=== PATIENT | female | born 1945 | race Caucasian/White ===

== ENCOUNTER 2018-02-10 06:40 | Day surgery (SDC) ==
[2018-02-10] MEDS ORDERED: LIDOCAINE 1% 20 ML MDV ID STA (07:26)
[2018-02-10] MEDS ORDERED: DIPRIVAN 20 ML VIAL IVP ONE (08:45)
[2018-02-10 15:16] VITALS: BP 128/67; TEMP 98.4
--- NOTE | 2018-02-11 10:54 | OP ---
PROCEDURE: COLONOSCOPY TO THE CECUM WITH SNARE POLYPECTOMY. ENDOSCOPIST: Yola ARTHUR M.D. INDICATION: HISTORY OF POLYPS INSTRUMENT: [id number]. MEDICATION: PER ANESTHESIA. DATE OF LAST COLONOSCOPY: 2008 PROCEDURE: The patient was positioned for colonoscopy. The digital rectal exam was negative. The colonoscope was inserted through the anus and advanced to the cecum. The cecum was identified using the ileocecal valve and the appendiceal orifice as landmarks. The scope was slowly withdrawn through an suboptimally prepped colon. [place] Bowel Prep Score 2+2+2=6. In the cecal pit we found a 1cm sessile polyp removed using snare cautery. A 5mm poly in the ascending colon using snare cautery. Diverticulosis is seen in the left colon. Retroflex exam was otherwise normal. Withdraw time 7 minutes and 58 seconds. PLAN: 1. Repeat exam again in 3 years. CC: Dr. Ravi JOHNSTON
== END 2018-02-10 09:55 | disposition home or self-care (01) ==
LOC: SURG 06:40
PROVIDERS: ATTEND Internal Medicine Gastroenterology
DX: K63.5 Polyp of colon (principal); K57.90 Diverticulosis of intestine, part unspecified, without perforation or abscess without bleeding; Z86.010 Personal history of colon polyps

== ENCOUNTER 2023-02-17 20:39 | Observation (INO) ==
--- NOTE | 2023-02-17 21:31 | ED.PDOC ---
General ED Provider: Dr. ROMIE QUINTANILLA DO Chief Complaint: Altered Mental Status Stated Complaint: 77 year old female with PMHx of HTN and HLD who presents to the emergency department by POV with chief complaint of an episode of altered awareness/amnesia that occurred today while attending her jehovah's witness service. Patient states she had a brief episode of confusion and was unaware of how long she had been standing talking to a member of her jehovah's witness and states when she sat down she could not remember a single persons name in her religion which she states is unusual for her since she has been going there for so long. Patients symptoms spontaneously abated and she reports she is back to her baseline. Denies recent fever, chills, syncope, headache, chest pain, SOB, new cough, N/V/D, dysuria, flank pain, or new focal weakness/numbness. No other associated symptoms or modifying factors at this time. Time Seen by Provider: 02/17/23 21:31 Mode of Arrival: Walk-In Information Source: Patient Primary Care Provider: RAAD HERNANDEZ Nursing and Triage Documentation Reviewed and Agree: Yes Review of Systems Review Of Systems Constitutional: Reports No symptoms All Other Systems: Reviewed and Negative [facility] Medical History FH: cholecystectomy Z83.79 - Family history of other diseases of the digestive system (ICD-10) Hypertension I10 - Essential (primary) hypertension (ICD-10) Hypothyroidism E03.9 - Hypothyroidism, unspecified (ICD-10) Serum lipids high E78.5 - Hyperlipidemia, unspecified (ICD-10) Family History Other No known health problems Social History Smoking and tobacco status: Never smoker Surgical History H/O heart artery stent Z95.5 - Presence of coronary angioplasty implant and graft (ICD-10) H/O: hysterectomy Z90.710 - Acquired absence of both cervix and uterus (ICD-10) Physical Exam Physical Exam Appearance: Reports Well-appearing, No pain distress and Well-nourished Ill-appearing: None Pain Distress: None Eyes: Reports POP, EOMI and Conjunctiva clear ENT: Reports Ears normal, Nose normal and Oropharynx normal Neck: Supple Respiratory: Reports Airway patent, Breath sounds clear, Breath sounds equal and Respirations nonlabored Cardiovascular: Reports RRR, Pulses normal, No rub and No murmur GI/: Reports Soft, Nontender, No masses, Bowel sounds normal and No Organomegaly Musculoskeletal: Reports Normal strength, ROM intact, No edema and No calf tenderness Skin: Reports Warm, Dry and Normal color Neurological: Reports Sensation intact, Motor intact, Reflexes intact, Cranial nerves intact, Alert and Oriented Psychiatric: Reports Affect appropriate and Mood appropriate NIH Stroke Scale 1a. Level of Consciousness: 0=Alert and keenly responsive 1b. Level of Consciousness Questions: 0=Answers correctly to two questions 1c. Level of Consciousness Commands: 0=Performs two tasks correctly 2. Best Gaze: 0=Normal 3. Visual: 0=No visual loss 4. Facial Palsy: 0=Normal 5a. Motor Left Arm: 0=No drift,arm holds 90 degrees for 10 sec., leg 30 degrees for 5 sec. 5b. Motor Right Arm: 0=No drift,arm holds 90 degrees for 10 sec., leg 30 degrees for 5 sec. 6a. Motor Left Le=No drift,arm holds 90 degrees for 10 sec., leg 30 degrees for 5 sec. 6b. Motor Right Le=No drift,arm holds 90 degrees for 10 sec., leg 30 degrees for 5 sec. 7. Limb Ataxia: 0=Absent 8. Sensory: 0=Normal 9. Best Language: 0=No aphasia 10. Dysarthria: 0=Normal 11. Extincion and Inattention: 0=Normal Stroke Scale Total: 0 Critical Care Note Critical Care Note Total Critical Care Time (mins): 0 Course Course 02/18/23 04:47 02/18/23 04:47 Orders, Labs, Meds: Lab Review 02/17/23 02/17/23 20:50 21:32 WBC 5.63 RBC 4.47 Hgb 13.0 Hct 39.3 MCV 87.9 MCH 29.1 MCHC 33.1 RDW Coeff of Jeremy 13.2 Plt Count 249 Immature Gran % (Auto) 0.4 Neut % (Auto) 55.8 Lymph % (Auto) 27.5 [place] % (Auto) 11.4 H Eos % (Auto) 3.7 Baso % (Auto) 1.2 Neut # (Auto) 3.1 Lymph # (Auto) 1.6 [place] # (Auto) 0.6 Eos # (Auto) 0.2 Baso # (Auto) 0.1 Immature Gran # (Auto) 0.0 PT 10.4 INR 1.00 APTT 26.0 Sodium 131.0 L Potassium 3.23 L Chloride 94.7 L Carbon Dioxide 28.1 Anion Gap 11.43 BUN 9.0 Creatinine 0.59 L Estimated GFR (MDRD) 99.00 BUN/Creatinine Ratio 15.25 Glucose 90.9 Calcium 9.26 Total Bilirubin 1.33 H AST 34.8 ALT 19.3 Alkaline Phosphatase 126.6 Troponin I < 0.012 NT-Pro-B Natriuret Pep 222 Total Protein 8.55 H Albumin 4.69 Globulin 3.86 Albumin/Globulin Ratio 1.21 TSH 3.540 Urine Color Yellow Urine Clarity Clear Urine pH 7.0 Ur Specific [place] 1.015 Urine Protein Negative Urine Glucose (UA) Negative Urine Ketones Negative Urine Blood Negative Urine Nitrite Negative Urine Bilirubin Negative Urine Urobilinogen 0.2 Ur Leukocyte Esterase Negative Orders Category Date Time Status ADMIT OBSERVATION [PLACE PATIENT OBSERVATION] .TO ADMISSION 02/17/23 22:07 Active MEDSURG (MONITORED BED) EKG-(ED ONLY) Stat CARDIO 02/17/23 21:30 Completed TELEMETRY MONITORING TELE CARE 02/17/23 22:07 Active CBC W/ AUTO DIFF Stat LAB 02/17/23 20:50 Completed COMPREHENSIVE METABOLIC PANEL Stat LAB 02/17/23 20:50 Completed NT-PROBNP(ED) Stat LAB 02/17/23 20:50 Completed PARTIAL THROMBOPLASTIN TIME Stat LAB 02/17/23 20:50 Completed PT WITH INR Stat LAB 02/17/23 20:50 Completed THYROID STIMULATING HORMONE Stat LAB 02/17/23 20:50 Completed TROPONIN I Stat LAB 02/17/23 20:50 Completed URINALYSIS C & S IF INDICATED Stat LAB 02/17/23 21:32 Completed CHEST, 1V AP ONLY Stat RADS 02/17/23 21:[address] HEAD W/O CONTRAST Stat RADS 02/17/23 21:27 Completed Medications Generic Name Dose Route Start Last Admin Trade Name Freq PRN Reason Stop Dose Admin Acetaminophen 650 mg 02/17/23 22:46 Acetaminophen 325 Mg Tablet PO Q4H PRN Mild Pain Hydralazine HCl 10 mg 02/17/23 22:46 Hydralazine Hcl 20 Mg/Ml Sdv IVP Q6H PRN Hypertension Discontinued Medications Generic Name Dose Route Start Last Admin Trade Name Freq PRN Reason Stop Dose Admin Potassium Chloride 40 meq 02/17/23 22:51 02/17/23 23:25 Potassium Chloride 20 Meq Tab PO 02/17/23 22:52 40 meq ONCE ONE Administration Vital Signs: Temp Pulse Resp BP Pulse Ox 02/17/23 20:42 98.3 F 76 16 198/77 H 97 Discharge Plan Discharge Patient Disposition: ADMITTED INPATIENT Discharge Problem: Altered awareness, transient, Brain TIA Did you review [place] FILM ARCHIVIST for ALL controlled substances?: Not Applicable ED Provider: ROMIE QUINTANILLA Physician Progress Note: []
[2023-02-17 21:36] LABS: BASOPHILS # (AUTO) 0.1 K/uL (0-0.2); BASOPHILS % (AUTO) 1.2 % (0.0-3.0); EOSINOPHILS # (AUTO) 0.2 K/ul (0.0-0.7); EOSINOPHILS % (AUTO) 3.7 % (0.0-7.0); HEMATOCRIT 39.3 % (37.0-47.0); IMMATURE GRANULOCYTE % (AUTO) 0.4 % (0.0-5.0); LYMPHOCYTES # (AUTO) 1.6 K/uL (0.60-3.4); LYMPHOCYTES % (AUTO) 27.5 (10.0-50.0); MEAN CORPUSCULAR HEMOGLOBIN 29.1 pg (27.0-31.0); MEAN CORPUSCULAR HGB CONC 33.1 (31.8-35.4); MEAN CORPUSCULAR VOLUME 87.9 fl (81.0-99.0); MONOCYTES # (AUTO) 0.6 K/uL (0.4-2.0); MONOCYTES % (AUTO) 11.4 (0-10); NEUTROPHILS # (AUTO) 3.1 K/ul (2.0-6.9); NEUTROPHILS % (AUTO) 55.8 % (42.2-75.2); PLATELET COUNT 249 10^3/uL (140-440); RDW COEFFICIENT OF VARIATION 13.2 % (11.6-14.8); RED BLOOD COUNT 4.47 10^6/ul (4.20-5.40); WHITE BLOOD COUNT 5.63 K/ul (4.6-10.2)
[2023-02-17 21:42] LABS: BILIRUBIN,URINE Negative (NEGATIVE); CLARITY,URINE Clear (CLEAR); COLOR,URINE Yellow (YELLOW); GLUCOSE, URINE (UA) Negative (NEGATIVE); KETONES,URINE Negative (NEGATIVE); LEUKOCYTE ESTERASE ,URINE Negative (NEGATIVE); NITRITE,URINE Negative (NEGATIVE); PROTEIN,URINE Negative (NEGATIVE); URINE, BLOOD Negative (NEGATIVE); UROBILINOGEN,URINE 0.2 (0.2)
[2023-02-17 21:47] LABS: ALANINE AMINOTRANSFERASE 19.3 U/L (0-35); ALBUMIN 4.69 g/dL (3.5-5.0); ALKALINE PHOSPHATASE 126.6 U/L (53-141); ASPARTATE AMINO TRANSFERASE 34.8 U/L (14-36); BILIRUBIN,TOTAL 1.33 mg/dL (0.2-1.3); CALCIUM 9.26 mg/dL (8.4-10.2); CARBON DIOXIDE 28.1 mmol/L (22-30.0); CHLORIDE 94.7 mmol/L (98-107); CREATININE 0.59 mg/dL (0.60-1.30); GLUCOSE 90.9 mg/dL (74-106); POTASSIUM 3.23 mmol/L (3.5-5.1); TOTAL PROTEIN 8.55 g/dL (6.3-8.2)
[2023-02-17 21:48] LABS: PROTHROMBIN TIME 10.4 SEC (9.3-11.0)
--- NOTE | 2023-02-17 21:48 | CT ---
EXAM: CT BRAIN WITHOUT CONTRAST HISTORY: Transit ischemic attack TECHNIQUE: CT of the brain without intravenous contrast. FINDINGS: There is no acute hemorrhage midline shift or mass effect. No hydrocephalus or abnormal e xtra-axial fluid collection. Generalized involutional atrophy, mild. Chronic microvascular change o f the periventricular white matter, minimal. No acute large vessel territorial infarct is seen. The bony cranium appears normal. The visualized paranasal sinuses are clear. Soft tissues without signi ficant abnormality. IMPRESSION: 1. No acute intracranial abnormality. Chronic changes as described. All CT scans are performed using dose optimization techniques as appropriate to the performed exam an d include at least one of the following: Automated exposure control, adjustment of the mA and/or kV according t o size, and the use of iterative reconstruction technique.
--- NOTE | 2023-02-17 21:55 | DI ---
EXAM: CHEST ONE-VIEW History: Transient ischemic attack FINDINGS: Normal cardiomediastinal contours. Normal pulmonary vasculature. No infiltrative opaciti es. Granulomatous calcifications bilaterally. The lungs are hyperexpanded. No acute chest wall abn ormality. Impression: No acute cardiopulmonary disease Probable component of chronic obstructive pulmonary disease
[2023-02-17 21:59] LABS: TROPONIN I < 0.012 ng/ml (0.0000-0.120)
[2023-02-17] MEDS ORDERED: HYDRALAZINE HCL IVP PRN (22:46)
[2023-02-17] MEDS ORDERED: TYLENOL PO PRN (22:46)
[2023-02-17] MEDS ORDERED: K-DUR PO ONE (22:51)
[2023-02-17 23:19] VITALS: BMI 24.9
[2023-02-18 05:30] LABS: BASOPHILS # (AUTO) 0.1 K/uL (0-0.2); BASOPHILS % (AUTO) 1.1 % (0.0-3.0); EOSINOPHILS # (AUTO) 0.2 K/ul (0.0-0.7); EOSINOPHILS % (AUTO) 3.6 % (0.0-7.0); HEMOGLOBIN 11.7 g/dl (12.0-16.0); IMMATURE GRANULOCYTE % (AUTO) 0.4 % (0.0-5.0); LYMPHOCYTES # (AUTO) 1.2 K/uL (0.60-3.4); LYMPHOCYTES % (AUTO) 27.9 (10.0-50.0); MEAN CORPUSCULAR HGB CONC 32.5 (31.8-35.4); MEAN CORPUSCULAR VOLUME 89.1 fl (81.0-99.0); MONOCYTES # (AUTO) 0.5 K/uL (0.4-2.0); MONOCYTES % (AUTO) 12.1 (0-10); NEUTROPHILS # (AUTO) 2.4 K/ul (2.0-6.9); NEUTROPHILS % (AUTO) 54.9 % (42.2-75.2); PLATELET COUNT 220 10^3/uL (140-440); RDW COEFFICIENT OF VARIATION 13.2 % (11.6-14.8); RED BLOOD COUNT 4.04 10^6/ul (4.20-5.40); WHITE BLOOD COUNT 4.45 K/ul (4.6-10.2)
[2023-02-18 06:01] LABS: ALANINE AMINOTRANSFERASE 16.9 U/L (0-35); ALBUMIN 3.79 g/dL (3.5-5.0); ALKALINE PHOSPHATASE 84.4 U/L (53-141); ASPARTATE AMINO TRANSFERASE 30.2 U/L (14-36); BILIRUBIN,TOTAL 1.04 mg/dL (0.2-1.3); BLOOD UREA NITROGEN 7.6 mg/dL (7-17); CALCIUM 8.77 mg/dL (8.4-10.2); CARBON DIOXIDE 25.4 mmol/L (22-30.0); CHLORIDE 103.5 mmol/L (98-107); CREATININE 0.48 mg/dL (0.60-1.30); GLUCOSE 80.3 mg/dL (74-106); POTASSIUM 3.72 mmol/L (3.5-5.1); SODIUM 134.2 mmol/L (134.5-145); TOTAL PROTEIN 7.01 g/dL (6.3-8.2)
[2023-02-18] MEDS ORDERED: ASPIRIN EC PO ONE (08:07)
[2023-02-18] MEDS ORDERED: SYNTHROID PO SCH (08:30)
[2023-02-18 08:36] LABS: CHOLESTEROL 260.3 mg/dL (0-200); HDL CHOLESTEROL 53.2 mg/dL (35-80); TRIGLYCERIDES 58.2 mg/dL (0-150)
[2023-02-18] MEDS ORDERED: PLAVIX PO SCH (09:00)
[2023-02-18 10:08] VITALS: RESP 15
--- NOTE | 2023-02-18 10:16 | MRI ---
EXAM: BRAIN MRI WITHOUT CONTRAST HISTORY: Stroke/TIA. TECHNIQUE: Multiplanar and multisequence MRI of the brain without the administration of intravenous contrast. COMPARISON: Brain CT dated 02/17/2023. FINDINGS: There is no intracranial mass. There is no acute ischemic infarct or acute intracranial hemorrhage. There is mild to moderate cerebral parenchymal volume loss. There is no hydrocephalus. Multiple foci of T2/FLAIR hyperintense signal are present in the subcortical and periventricular whit e matter, most commonly seen in chronic white matter microvascular ischemic changes. The basilar cisterns are patent. The posterior fossa structures are within normal limits. The paranasal sinuses and mastoid air cells are well aerated. There has been prior bilateral cataract surgery. No calvarial abnormality is identified. IMPRESSION: 1. No acute intracranial findings. 2. Mild to moderate cerebral atrophy. 3. Mild chronic white matter microvascular ischemic changes.
--- NOTE | 2023-02-18 10:19 | CT ---
EXAMINATION: COMPUTED TOMOGRAPHY ANGIOGRAPHY (CTA) OF THE HEAD WITHOUT AND WITH CONTRAST HISTORY: Stroke symptoms.. TECHNIQUE: Computed tomography of the head was performed without contrast according to standard tonny col. Computed tomography angiography was obtained from the skull base to the vertex following admini stration of intravenous contrast. IV Contrast: Omnipaque 350.. 3D/MIP/VR images utilized. CT Dose Reduction Techniques Employed: Yes COMPARISON: None FINDINGS: PARENCHYMAL FINDINGS: Hemorrhage: None. Parenchyma: Normal ovalle-white differentiation. No chronic infarct. No parenchymal atrophy. Mass effect: No midline shift. Ventricles: Normal size and configuration for age. Other: Orbits are normal. Paranasal sinuses are normal. Mastoid air cells are normal. Soft tissues are normal. Calvarium is normal. ANGIOGRAPHIC FINDINGS: Limited Neck: Patent extracranial vasculature. There is apparent narrowing of the proximal petrous p ortions of both internal carotid arteries on the 3-D reconstructions. This finding is not present on the axial source images and is believed to represent artifact. Habematolel of [place]: Complete. Anterior Circulation: - Internal Carotid Arteries: No significant stenosis. - Middle Cerebral Arteries: No significant stenosis. - Anterior Cerebral Arteries: No significant stenosis. Posterior (Vertebrobasilar) Circulation: - Vertebral Arteries: Co-dominant. No significant stenosis. - Basilar Artery: No significant stenosis. - Posterior Cerebral Arteries: No significant stenosis. Other: No aneurysm. No vascular malformation. IMPRESSION: No large vessel occlusion. No acute intracranial abnormality. All CT scans are performed using dose optimization techniques as appropriate to the performed exam an d include at least one of the following: Automated exposure control, adjustment of the mA and/or kV according t o size, and the use of iterative reconstruction technique.
--- NOTE | 2023-02-18 10:31 | CT ---
EXAMINATION: COMPUTED TOMOGRAPHY ANGIOGRAPHY (CTA) OF THE NECK WITHOUT AND WITH CONTRAST HISTORY: Stroke TECHNIQUE: Computed tomographic angiography was obtained from aortic arch to the pamunkey [place] follow ing administration of intravenous contrast. IV Contrast: Omnipaque 350. 3D/MIP/VR images utilized. CT Dose Reduction Techniques Employed: Yes COMPARISON: CTA brain 02/18/2023. FINDINGS: NECK ANGIOGRAPHIC FINDINGS: Great Vessels: Normal configuration of the great vessels. Normal branching of aortic arch vessels. Calcified atherosclerotic plaque of the aorta. Common Carotid Arteries: - Right: Normal course and caliber. Moderate atherosclerotic plaque. - Left: Normal course and caliber. Mild atherosclerotic plaque. Internal Carotid Arteries: - Right: Normal course and caliber. Calcified atherosclerotic plaque. Focal plaque is present in th e proximal right internal carotid artery 2 cm from its origin which narrows the diameter by about 50% . Calcified plaque is present at the carotid bifurcation without hemodynamically significant stenosi s. - Left: Normal course and caliber. Mild atherosclerotic plaque. No hemodynamically significant narr owing at the carotid bifurcation by NASCET criteria. Vertebral Arteries: Co-dominant. - Right: Normal course and caliber. - Left: Normal course and caliber. IMPRESSION: There is focal plaque near the origin of the right internal carotid artery resulting in narrowing of about 50%. All CT scans are performed using dose optimization techniques as appropriate to the performed exam an d include at least one of the following: Automated exposure control, adjustment of the mA and/or kV according t o size, and the use of iterative reconstruction technique.
[2023-02-18] MEDS ORDERED: ASPIRIN EC ONE (10:32)
--- NOTE | 2023-02-18 11:59 | PCM.SS ---
Provider Provider: TRISH JULES PA-C, [facility] Admission Date Admission Date: 02/17/23 Discharge Date Discharge Date: 02/18/23 Primary Care Physician Primary Care Physician: RAAD HERNANDEZ Chief Complaint Reason For Visit: TIA History of Present Illness History of Present Illness: Admitted 02/17/23 22:26, this 77 year old /WHITE/F with past medical history of CAD status post stent, hypertension, hyperlipidemia, hypothyroidism who presented to the ER with complaints of memory loss. Patient states that while she was in [employer] she lost time. She looked around and did not know anyone's name which she normally knows everybody at [employer]. She just states that she felt unusual. She knew her 's name but no one else. She denies any focal weakness, headache, change in vision. No history of TIA or stroke. States that she takes Plavix daily and used to be on aspirin and Plavix but they stopped the aspirin. She is unsure why, thinks that maybe it just was not needed anymore. She has hyperlipidemia which she does not take a statin for anymore as it caused elevated liver enzymes. She follows with Dr. Pino cardiology in [place]. In the ER she had a negative CT head. NIH was 0. On my evaluation this morning patient denies any focal deficits. She feels that her mentation is normal and at her baseline. [facility] Medical History FH: cholecystectomy Z83.79 - Family history of other diseases of the digestive system (ICD-10) Hypertension I10 - Essential (primary) hypertension (ICD-10) Hypothyroidism E03.9 - Hypothyroidism, unspecified (ICD-10) Serum lipids high E78.5 - Hyperlipidemia, unspecified (ICD-10) Surgical History H/O heart artery stent Z95.5 - Presence of coronary angioplasty implant and graft (ICD-10) H/O: hysterectomy Z90.710 - Acquired absence of both cervix and uterus (ICD-10) Family History Other No known health problems Social History Smoking and tobacco status: Never smoker Medications Mecications: Medications at Discharge (Home Meds & RX) amlodipine 2.5 mg tablet (Norvasc) 2.5 mg PO DAILY 02/06/18 hydrochlorothiazide 12.5 mg tablet 12.5 mg PO DAILY 02/06/18 levothyroxine 50 mcg tablet (Synthroid) 50 mcg PO QDAC 02/06/18 carvedilol 3.125 mg tablet (Coreg) 3.125 mg PO Q12H 02/17/23 cholecalciferol (vitamin D3) 25 mcg (1,000 unit) capsule (Vitamin D3) 1,000 unit PO DAILY 02/17/23 clopidogrel 75 mg tablet (Plavix) 75 mg PO DAILY 02/17/23 potassium 10 mg PO DAILY 02/17/23 Allergies Allergies Allergy/AdvReac Type Severity Reaction Status Date / Time No Known Allergies Allergy Verified 02/17/23 20:57 Review of Systems Constitutional: Denies Fever, Fatigue, Chills or Weakness Head: Reports Normocephalic and Atraumatic Eyes: Denies Vision Changes Throat: Denies Sore Throat or Difficulty Swallowing Cardiovascular: Denies Chest pain, Chest Pressure or Edema Respiratory: Denies Cough or Shortness of air Gastrointestinal: Denies Nausea, Vomiting, Diarrhea or Abdominal pain Genitourinary: Denies Dysuria or Frequency Dermatologic: Denies Rashes Neurological: Reports Other (+amnesia, transient, resolved ); Denies Headache, Dizziness, Syncope, Seizure, Numbness, Weakness, Speech difficulty or Problems with walking Psychiatric: Denies Depression or Anxiety Physical Examination Appearance: Positive Well-appearing, Well-nourished, No Apparent Distress and Alert and Oriented x3 Head: Positive Normocephalic and Atraumatic Neck: Positive Supple and Trachea Midline Heart: Positive RRR Respiratory: Positive Breath Sounds Clear, Bilaterally GI/: Positive Soft, Nontender, Bowel sounds normal and No Distention Extremities: Negative Edema Neurological: Positive Cranial nerves intact, Normal Gait and Oriented Psychiatric: Positive Normal Judgement, Normal Insight, Affect Appropriate and Mood Appropriate Vital Signs (Last 4 Hours) Vital Signs Last 4 Hours: Vital Signs: Last 4 Hours 02/18/23 10:00 Temperature 97.6 F Temperature Source Oral Pulse Rate 69 Respiratory Rate 15 Blood Pressure 152/65 H Blood Pressure Mean 94 Blood Pressure Location Right Arm Blood Pressure Position Supine O2 Sat by Pulse Oximetry 97 Oxygen Delivery Method Room Air Labs This Visit Labs This Visit: Labs This Visit 02/17/23 02/17/23 02/18/23 20:50 21:32 04:47 WBC 5.63 4.45 L RBC 4.47 4.04 L Hgb 13.0 11.7 L Hct 39.3 36.0 L MCV 87.9 89.1 MCH 29.1 29.0 MCHC 33.1 32.5 RDW Coeff of Jreemy 13.2 13.2 Plt Count 249 220 Immature Gran % (Auto) 0.4 0.4 Neut % (Auto) 55.8 54.9 Lymph % (Auto) 27.5 27.9 [place] % (Auto) 11.4 H 12.1 H Eos % (Auto) 3.7 3.6 Baso % (Auto) 1.2 1.1 Neut # (Auto) 3.1 2.4 Lymph # (Auto) 1.6 1.2 [place] # (Auto) 0.6 0.5 Eos # (Auto) 0.2 0.2 Baso # (Auto) 0.1 0.1 Immature Gran # (Auto) 0.0 0.0 PT 10.4 INR 1.00 APTT 26.0 Sodium 131.0 L 134.2 L Potassium 3.23 L 3.72 Chloride 94.7 L 103.5 Carbon Dioxide 28.1 25.4 Anion Gap 11.43 9.02 BUN 9.0 7.6 Creatinine 0.59 L 0.48 L Estimated GFR (MDRD) 99.00 125.00 BUN/Creatinine Ratio 15.25 15.83 Glucose 90.9 80.3 Hemoglobin A1c 5.37 Calcium 9.26 8.77 Total Bilirubin 1.33 H 1.04 AST 34.8 30.2 ALT 19.3 16.9 Alkaline Phosphatase 126.6 84.4 D Troponin I < 0.012 NT-Pro-B Natriuret Pep 222 Total Protein 8.55 H 7.01 Albumin 4.69 3.79 Globulin 3.86 3.22 Albumin/Globulin Ratio 1.21 1.17 Triglycerides 58.2 Cholesterol 260.3 H LDL Cholesterol, Calc 195 VLDL Cholesterol 12 HDL Cholesterol 53.2 Cholesterol/HDL Ratio 4.9 TSH 3.540 Urine Color Yellow Urine Clarity Clear Urine pH 7.0 Ur Specific [place] 1.015 Urine Protein Negative Urine Glucose (UA) Negative Urine Ketones Negative Urine Blood Negative Urine Nitrite Negative Urine Bilirubin Negative Urine Urobilinogen 0.2 Ur Leukocyte Esterase Negative Imaging Imaging: EXAM: CT BRAIN WITHOUT CONTRAST HISTORY: Transit ischemic attack TECHNIQUE: CT of the brain without intravenous contrast. FINDINGS: There is no acute hemorrhage midline shift or mass effect. No hydrocephalus or abnormal extra-axial fluid collection. Generalized in volutional atrophy, mild. Chronic microvascular change of the periventricular white matter, minimal. No acute large vessel territorial infarct is seen. The bony cranium appears normal. The visualized paranasal sinuses are clear. Soft tissues without significant abnormality. IMPRESSION: 1. No acute intracranial abnormality. Chronic changes as described. EXAMINATION: COMPUTED TOMOGRAPHY ANGIOGRAPHY (CTA) OF THE HEAD WITHOUT AND WITH CONTRAST HISTORY: Stroke symptoms.. TECHNIQUE: Computed tomography of the head was performed without contrast according to standard protocol. Computed tomography angiography was obtained from the skull base to the vertex following administration of intravenous contrast. IV Contrast: Omnipaque 350.. 3D/MIP/VR images utilized. CT Dose Reduction Techniques Employed: Yes COMPARISON: None FINDINGS: PARENCHYMAL FINDINGS: Hemorrhage: None. Parenchyma: Normal ovalle-white differentiation. No chronic infarct. No parenchymal atrophy. Mass effect: No midline shift. Ventricles: Normal size and configuration for age. Other: Orbits are normal. Paranasal sinuses are normal. Mastoid air cells are normal. Soft tissues are normal. Calvarium is normal. ANGIOGRAPHIC FINDINGS: Limited Neck: Patent extracranial vasculature. There is apparent narrowing of the proximal petrous portions of both internal carotid arteries on the 3-D reconstructions. This finding is not present on the axial source images and is believed to represent artifact. [place]: Complete. Anterior Circulation: - Internal Carotid Arteries: No significant stenosis. - Middle Cerebral Arteries: No significant stenosis. - Anterior Cerebral Arteries: No significant stenosis. Posterior (Vertebrobasilar) Circulation: - Vertebral Arteries: Co-dominant. No significant stenosis. - Basilar Artery: No significant stenosis. - Posterior Cerebral Arteries: No significant stenosis. Other: No aneurysm. No vascular malformation. IMPRESSION: No large vessel occlusion. No acute intracranial abnormality. EXAMINATION: COMPUTED TOMOGRAPHY ANGIOGRAPHY (CTA) OF THE NECK WITHOUT AND WITH CONTRAST HISTORY: Stroke TECHNIQUE: Computed tomographic angiography was obtained from aortic arch to the [place] following administration of intravenous contrast. IV Contrast: Omnipaque 350. 3D/MIP/VR images utilized. CT Dose Reduction Techniques Employed: Yes COMPARISON: CTA brain 02/18/2023. FINDINGS: NECK ANGIOGRAPHIC FINDINGS: Great Vessels: Normal configuration of the great vessels. Normal branching of aortic arch vessels. Calcified atherosclerotic plaque of the aorta. Common Carotid Arteries: - Right: Normal course and caliber. Moderate atherosclerotic plaque. - Left: Normal course and caliber. Mild atherosclerotic plaque. Internal Carotid Arteries: - Right: Normal course and caliber. Calcified atherosclerotic plaque. Focal plaque is present in the proximal right internal carotid artery 2 cm from its origin which narrows the diameter by about 50%. Calcified plaque is present at the carotid bifurcation without hemodynamically significant stenosis. - Left: Normal course and caliber. Mild atherosclerotic plaque. No hemodynamically significant narrowing at the carotid bifurcation by NASCET criteria. Vertebral Arteries: Co-dominant. - Right: Normal course and caliber. - Left: Normal course and caliber. IMPRESSION: There is focal plaque near the origin of the right internal carotid artery resulting in narrowing of about 50%. EXAM: BRAIN MRI WITHOUT CONTRAST HISTORY: Stroke/TIA. TECHNIQUE: Multiplanar and multisequence MRI of the brain without the administration of intravenous contrast. COMPARISON: Brain CT dated 02/17/2023. FINDINGS: There is no intracranial mass. There is no acute ischemic infarct or acute intracranial hemorrhage. There is mild to moderate cerebral parenchymal volume loss. There is no hydrocephalus. Multiple foci of T2/FLAIR hyperintense signal are present in the subcortical and periventricular white matter, most commonly seen in chronic white matter microvascular ischemic changes. The basilar cisterns are patent. The posterior fossa structures are within normal limits. The paranasal sinuses and mastoid air cells are well aeratd. There has been prior bilateral cataract surgery. No calvarial abnormality is identified. IMPRESSION: 1. No acute intracranial findings. 2. Mild to moderate cerebral atrophy. 3. Mild chronic white matter microvascular ischemic changes. Review Review Statement: I have independently reviewed and interpreted the labs/EKGs/imaging that were ordered by the ER provider. I have reviewed all outside records that are available currently in our EMR including imaging/notes/labs from previous visits. Plan Reccomendations/Plan: 1. TIA versus CVACTA head neck and brain MRI ordered. Echo ordered. Lipid and A1c ordered. Hold blood pressure medications. TSH normal. NIH 0 this morning. Plan to DC with Holter. 2. CAD status post stent -continue Plavix. Patient no longer takes aspirin. 3. Hyperlipidemia, uncontrolledcheck lipid. Patient no longer takes statin due to elevated liver enzymes. Following outpatient. 4. HypothyroidismTSH normal continue levothyroxine. 5. Hypertensionhold Antihypertensives at this time. Patient's MRI and CTA of head were negative for acute stroke. CTA of neck showed right ICA stenosis of 50%. Patient states this is a new diagnosis for her. Unable to tolerate a statin due to elevated liver enzymes. Recommended outpatient follow-up with PCP and potentially vascular referral for monitoring. Discussed likely TIA. Increased risk for stroke. We will add on baby aspirin daily. We will send patient on event monitor for 30 days to evaluate for underlying A-fib. Echo report still pending but per Dr. Diaz Wilson it looked good. Patient has no deficits and is eager for discharge. Follow-up with PCP in the next week. Patient agrees plan of care. Pending studies: Echo report, event monitor Discharge diagnoses: 1. TIA, resolved 2. ICA, Right, 50% stenosis 3. CAD s/p stent 4. Hyperlipidemia 5. Hypertension 6. Hypothyroidsim Additional Planning: Case discussed with ED Physician, Dr. Singh. Advanced Care Planning: FULL CODE 3 minutes spent discussing advance care planning. Admit to: Obs Discussed Plan of Care with Dr. Agusto Wilson. Review With Patient Reviewed with Patient and Family: Patient and family have been counseled on condition and care plan and have no immediate questions. I have personally discussed and reviewed the patient's visit/current labs/imaging/decision making with Dr. Agusto Wilson, my supervising attending. Total number of minutes spent with patient [85] min. More than 50% of the time spent with this patient was devoted to counseling and coordination of care. Time of Admission:02/17/23 22:26 Time of Discharge: Discharge Plan Discharge Discharge Orders: Discharge Patient (ONCE); Ordered 02/18/23 Ordered By: TRISH JULES Activity Restrictions/Additional Instructions: DISCHARGE TO HOME DX: TIA, CAROTID STENOSIS DIET: HEART HEALTHY ACTIVITY: TOLERATED F/U WITH PCP WITHIN 1 WEEK RECOMMEND OUTPATIENT VASCULAR REFERRAL FOR CAROTID STENOSIS EVENT MONITOR X30 DAYS, SEE PCP FOR RESULTS TAKE BABY ASPIRIN DAILY Instructions: Transient Ischemic Attack (GEN) Patient Disposition: HOME SELF-CARE Prescriptions: New aspirin 81 mg capsule 81 mg PO DAILY Qty: 30 0RF Continued potassium [Potassimin] 10 mg PO DAILY clopidogrel [Plavix] 75 mg tablet 75 mg PO DAILY cholecalciferol (vitamin D3) [Vitamin D3] 25 mcg (1,000 unit) capsule 1,000 unit PO DAILY carvedilol [Coreg] 3.125 mg tablet 3.125 mg PO Q12H Rx Instructions: must administer with a meal/food amlodipine [Norvasc] 2.5 MG tablet 2.5 mg PO DAILY levothyroxine [Synthroid] 50 MCG tablet 50 mcg PO QDAC hydrochlorothiazide 12.5 MG tablet 12.5 mg PO DAILY Did you review [place] [employer] for ALL controlled substances?: Not Applicable Discussed opioids are addictive and Narcan is available by prescription or from pharmacy.: No Condition: Stable
[2023-02-18 15:05] VITALS: BP 141/71; PULSE 61; TEMP 97.8
--- NOTE | 2023-02-20 09:11 | ECHO2D ---
Date of Exam: 02/18/2023 Ordering Physician: DR. RAAD HERNANDEZ/ KIKE NAJERA Room #: [id number] Reason for Echo: SOB, TIA M-Mode Normal Adult Results LV Dimensions Normal Adult Results AoV Opening excursions >1.6 >1.6 LVEDD-base- 3.5-5.8 4.3 Ao root dimensions 2.0-3.7 3.0 LVESD-base- 3.1-4.6 L. Atrium dimensions 1.9-3.8 3.9 Post. Wall thickness 0.8-1.1 1.2 IV septum (thickness) 0.7-1.2 1.2 Post. Wall excursion 0.72-1.3 NORMAL Septal motion NORMAL Systolic motion R. Ventricular cavity 1.5-2.0 NORMAL LVEF 60% 63% Paradoxical septal wall motion NORMAL 2-D : 2-D M Mode Echocardiogram was performed using apical four chamber and left parasternal long and short axis views. Mitral, tricuspid and aortic valves appear to be normal. Contractility of the left ventricle seems to be normal, so is the cavity size. Left atrial cavity size and aortic root appear to be normal. There is no pericardial effusion. There is no thrombus noted in the left ventricle or left atrial cavity. M-MODE: MV: NORMAL AV: NORMAL TV: NORMAL PV: CHAMBER SIZE: NORMAL WALL MOTION: NORMAL PERICARDIUM: NORMAL INTERPRETATION: 1. BORDERLINE LEFT VENTRICLE HYPERTROPHY 2. NORMAL LEFT VENTRICLE AND LEFT ATRIAL CAVITIES 3. NO THROMBUS OR THROMBI 4. NORMAL VALVES 5. NORMAL LEFT VENTRICLE CONTRACTILITY WITH EJECTION FRACTION 63% MTDD
== END 2023-02-18 15:40 | disposition home or self-care (01) ==
LOC: ED 20:39 → MEDSURG B 20:39
PROVIDERS: ADMIT Hospitalist; ATTEND Physician Assistant